=== PATIENT | female | born 1945 | race Caucasian/White ===

== ENCOUNTER 2019-03-05 16:18 | Emergency (ER) | payer OTHER ==
[~2019-03-05] VITALS: Ht 165.1 cm; Wt 83.9 kg
[2019-03-05] MEDS ORDERED: AUGMENTIN 875-1 EACH PO (17:14)
[2019-03-05 17:30] VITALS: BP 106/54
== END 2019-03-05 17:31 | disposition home or self-care (01) ==
LOC: M.ERS 16:18
DX: S81.812A Laceration without foreign body, left lower leg, initial encounter (principal); E78.00 Pure hypercholesterolemia, unspecified; W54.0XXA Bitten by dog, initial encounter; Y93.89 Activity, other specified; Y92.89 Other specified places as the place of occurrence of the external cause; Y99.8 Other external cause status

== ENCOUNTER → 2019-03-20 | Outpatient (CLI) | payer OTHER ==
[~2019-03-20] MED LIST: AUGMENTIN 875-1 EACH PO
== END ==
LOC: M.RAD 02-27 12:20
DX: Z12.31 Encounter for screening mammogram for malignant neoplasm of breast (principal)

== ENCOUNTER → 2019-03-26 | Outpatient (CLI) | payer OTHER | LOC: M.ULTRA 11:00 | DX: N63.13 Unspecified lump in the right breast, lower outer quadrant (principal) ==

== ENCOUNTER → 2019-04-01 | Outpatient (CLI) | payer OTHER | LOC: M.RAD 14:00 | DX: M85.88 Other specified disorders of bone density and structure, other site (principal) ==